=== PATIENT | male | born 1970 | race Caucasian/White ===

== ENCOUNTER → 2021-05-09 | Outpatient (CLI) | payer OTHER ==
--- NOTE | 2021-05-09 14:49 | Diagnostic Imaging Report ---
INDICATION: Right shoulder and clavicle pain COMPARISON: None. FINDINGS: Two views of the right clavicle demonstrate no fracture or dislocation. There are minimal degenerative changes of the AC and glenohumeral joint. There is no osseous lesion. No malalignment. IMPRESSION: Minimal degenerative joint disease. Dictated by: Dictated on workstation # [id number]
== END ==
LOC: RAD FS 11:23
PROVIDERS: ATTEND Family Medicine
DX: M19.011 Primary osteoarthritis, right shoulder (principal)
CPT/HCPCS: 73000

== ENCOUNTER → 2021-05-19 | Outpatient (CLI) | payer OTHER | LOC: LAB FS 14:53 | PROVIDERS: ATTEND Family Medicine | DX: Z12.5 Encounter for screening for malignant neoplasm of prostate (principal); R79.89 Other specified abnormal findings of blood chemistry | CPT/HCPCS: 36415; 84153; 84402; 84403 ==

== ENCOUNTER → 2022-02-14 | Outpatient (CLI) | payer OTHER | LOC: LAB FS 15:16 | PROVIDERS: ATTEND Family Medicine | DX: R79.89 Other specified abnormal findings of blood chemistry (principal) | CPT/HCPCS: 36415; 84402; 84403 ==

== ENCOUNTER → 2022-05-17 | Outpatient (CLI) | payer OTHER | LOC: LAB FS 10:29 | PROVIDERS: ATTEND Family Medicine | DX: Z12.11 Encounter for screening for malignant neoplasm of colon (principal); I10 Essential (primary) hypertension; R79.89 Other specified abnormal findings of blood chemistry | CPT/HCPCS: 36415; 84402; 84403 ==